=== PATIENT | female | born 1990 | race Caucasian/White ===

== ENCOUNTER 2024-10-30 03:35 | Emergency (ER) | payer OTHER ==
[~2024-10-30] VITALS: Ht 167.6 cm; Wt 103.6 kg
[~2024-10-30 03:35] MED LIST: TRAMADOL HCL50 MG PO; TRIMOX500 MG PO
[2024-10-30 03:56] LABS: BASO # 0.0 10*3/uL (0.0-0.1); BASO % 0.3 % (0.0-1.0); EOS # 0.1 10*3/uL (0.0-0.4); EOS % 0.9 % (1.0-4.0); MEAN CELL VOLUME 84.7 fl (81.0-99.0); MEAN CORPUSCULAR HGB 27.2 pg (27.0-31.0); MEAN PLATELET VOLUME 10.2 fl (9.6-12.3); MONO # 0.6 10*3/uL (0.1-1.0); MONO % 6.1 % (3.0-9.0); NEUT # 5.5 10*3/uL (2.3-7.9); NEUT % 58.7 % (47.0-73.0); NUCLEATED RED BLOOD CELL 0.0 % (0.0-0.0); NUCLEATED RED BLOOD CELL 0.0 10*3/uL (0.0-0.0); PLATELET COUNT AUTOMATED 351 10*3/uL (130-400); RED CELL DISTRI WIDTH 14.5 % (0-14.5)
[2024-10-30 04:16] LABS: BUN 9 mg/dl (9-23); ETHYL ALCOHOL 111.8 mg/dl (<3); SGPT/ALT 14 U/L (5-49)
[2024-10-30 04:47] LABS: BILIRUBIN Negative (Negative); BLOOD Negative (Negative); CLARITY Clear (Clear); COLOR Yellow (Yellow); KETONE Negative (Negative); LEUKO ESTERASE Trace (Negative); NITRITE Negative (Negative); PH 6.0 (4.5-8.0); SPECIFIC GRAVITY 1.010 (1.001-1.030); UROBILINOGEN 0.2 E.U./dl (0.0-1.0)
[2024-10-30 04:54] LABS: URINE AMPHETAMINES Negative (1000ng/ml); URINE BARBITURATES Negative (200ng/ml); URINE BENZODIAZEPINES Negative (200ng/ml); URINE CANNABINOIDS (THC) Negative (50ng/ml); URINE COCAINE Negative (300ng/ml); URINE METHADONE Negative (300ng/ml); URINE OPIATES Negative (300ng/ml); URINE PHENCYCLIDINE Negative (25ng/ml)
[2024-10-30 05:19] LABS: BACTERIA 1+
[2024-10-30] MEDS ORDERED: METFORMIN HYDR500 MG PO (09:44)
[2024-10-30] MEDS ORDERED: TRULICITY0.75 MG/0. SC (09:45)
== END 2024-10-30 12:15 ==
LOC: ED 03:35
PROVIDERS: Internal Medicine
DX: F43.21 Adjustment disorder with depressed mood (principal); Z79.899 Other long term (current) drug therapy